=== PATIENT | male | born 1940 | race Caucasian/White ===

== ENCOUNTER 2016-09-24 12:16 | Inpatient (IN) | payer MEDICARE ==
--- NOTE | 2016-09-24 12:55 | C.PDOC ---
History Of Present Illness 76 y/o M c CKD not yet on HD p/w hyponatremia. Patient went to PMD's office to have serial creatinine drawn, found to have hyponatremia and instructed to come to ER for further evaluation. Patient and deny altered mental status, lethargy, or seizure. Patient has had some shortness of breath for weeks, denies fever or cough. Time Seen by Provider: 09/24/16 12:44 Chief Complaint (Nursing): Abnormal Labs Past Medical History Reviewed: Historical Data, Nursing Documentation, Vital Signs Vital Signs: Last Vital Signs Temp 97.6 F 09/24/16 13:15 Pulse 61 09/24/16 13:15 Resp 19 09/24/16 13:15 BP 159/69 H 09/24/16 13:15 Pulse Ox 95 09/24/16 13:55 - Medical History PMH: HTN, End Stage Renal Disease Surgical History: No Surg Hx Family History: States: Unknown Family Hx - Social History Hx Tobacco Use: No Hx Alcohol Use: No Hx Substance Use: No Review Of Systems Except As Marked, All Systems Reviewed And Found Negative. Constitutional: Negative for: Fever Cardiovascular: Negative for: Chest Pain Physical Exam - Physical Exam Additional Physical Exam Comments: Constitutional: No acute distress. Head: Normocephalic. Atraumatic. Eyes: PERRL. ENT: Moist mucous membranes. Neck: Supple. Cardiovascular: Regular rate. Radial pulse 2+ bilaterally. Chest: No tenderness. Respiratory: Intermittent wheeze. GI: Soft. Nontender. Nondistended. Back: No CVA tenderness. Musculoskeletal: +welling of lower extremities. Skin: No rash. Neurologic: Alert, no focal deficit. ED Course And Treatment - Laboratory Results Result Diagrams: 09/24/16 13:26 09/24/16 13:26 O2 Sat by Pulse Oximetry: 95 (ra) Pulse Ox Interpretation: Normal Medical Decision Making Medical Decision Making: Repeat sodium 112. EKG NSR 66 bpm, no ST/T wave changes. CXR midline sternotomy wires. Mild congestion, will treat with Lasix, which patient takes BID. Accepted for admission by Dr. Garcia. Disposition Discussed With Dr.: Inessa Garcia Doctor Will See Patient In The: Hospital - Disposition Disposition: HOSPITALIZED Disposition Time: 14:19 Condition: GUARDED - Clinical Impression Clinical Impression: Hyponatremia
[2016-09-24 13:34] LABS: BASO # 0.1 K/uL (0.0-0.2); BASO % 0.8 % (0.0-2.0); EOS # 0.1 K/uL (0.0-0.7); EOS % 0.7 % (0.0-4.0); HEMATOCRIT 24.4 % (35.0-51.0); LYMPH # 0.5 K/uL (1.0-4.3); LYMPH % 4.1 % (20.0-40.0); MEAN CELL VOLUME 80.6 fL (80.0-94.0); MEAN CORPUSCULAR HGB CONC 33.5 g/dL (33.0-37.0); MONO # 1.1 K/uL (0.0-0.8); MONO % 8.8 % (0.0-10.0); PLATELET COUNT 310 K/uL (130-400); RED CELL DISTRIBUTION WIDTH 13.2 % (11.5-14.5); WHITE BLOOD COUNT 12.7 K/uL (4.8-10.8)
[2016-09-24 13:42] LABS: ALB/GLOB RATIO 1.1 (1.0-2.1); BILIRUBIN,TOTAL 0.3 mg/dL (0.2-1.3); TOTAL PROTEIN 5.8 g/dL (6.3-8.3)
[2016-09-24 13:43] LABS: CALCIUM 7.4 mg/dl (8.6-10.4)
[2016-09-24 14:04] LABS: EOSINOPHIL 2 % (0-4); NEUTROPHIL 88 % (50-75); TOTAL CELLS COUNTED 100
--- NOTE | 2016-09-24 14:43 | RAD ---
HISTORY: dyspnea COMPARISON: None available TECHNIQUE: Chest, one view. FINDINGS: LUNGS: Central vascular congestion. Linear atelectasis or scarring in the right midlung zone. Please note that chest x-ray has limited sensitivity for the detection of pulmonary masses. PLEURA: Suspect small bilateral pleural effusions. No definite pneumothorax . CARDIOVASCULAR: Median sternotomy wires. Cardiomegaly. OSSEOUS STRUCTURES: Degenerative changes. VISUALIZED UPPER ABDOMEN: Unremarkable. OTHER FINDINGS: None. IMPRESSION: Central vascular congestion. Linear atelectasis or scarring in the right midlung zone. Suspect small bilateral pleural effusions. Cardiomegaly.
--- NOTE | 2016-09-24 20:19 | CP.PCM.CON ---
History of Present Illness - History of Present Illness History of Present Illness: 76 M w/ PMHx of HTN, DM, ESRD, presents to the ED after PMD advised patient to head to ED after being notified of patient's critical lab values. Patient found to have hyponatremia. not yet on HD p/w hyponatremia. At time of examination patient was AAOx3. Patient reports some shortness of breath, states he has been experiencing this for about 4 days. Patient also complains of stomach distension and constipation. Patient states he produces some urine about every 2 -3 days. Patient denies chest pain, fever/chills. PMHx: as stated above PSurgHx: Open heart surgery(2007), umbilical hernia repair, appendectomy Soc Hx: denies smoking, EtOH use, illicit drug use. Review of Systems - Review of Systems Review of Systems: 12 pt ROS carried out, unremarkable; except as stated in HPI Past Patient History - Past Medical History & Family History Past Medical History?: Yes - Past Social History Smoking Status: Never Smoked - CARDIAC Hx Cardiac Disorders: Yes Hx Heart Attack: Yes Hx Hypercholesterolemia: Yes Hx Hypertension: Yes - PULMONARY Hx Respiratory Disorders: Yes Other/Comment: SOB ON EXERTION - NEUROLOGICAL Hx Neurological Disorder: No - HEENT Hx HEENT Problems: Yes Other/Comment: WEAR GLASSES,? RETINAL PROBLEM - RENAL Hx Chronic Kidney Disease: Yes - ENDOCRINE/METABOLIC Hx Endocrine Disorders: Yes Hx Diabetes Mellitus Type 2: Yes - HEMATOLOGICAL/ONCOLOGICAL Hx Blood Disorders: Yes Hx Anemia: Yes - INTEGUMENTARY Hx Dermatological Problems: No - MUSCULOSKELETAL/RHEUMATOLOGICAL Hx Musculoskeletal Disorders: No Hx Falls: No - GASTROINTESTINAL Hx Gastrointestinal Disorders: Yes Hx Constipation: Yes - GENITOURINARY/GYNECOLOGICAL Hx Genitourinary Disorders: Yes Hx Prostate Problems: Yes (HX OF PROSTATE TUMOR) - PSYCHIATRIC Hx Psychophysiologic Disorder: No Hx Substance Use: No - SURGICAL HISTORY Hx Surgeries: Yes Hx Herniorrhaphy: Yes (LEFT INGUINAL) Hx Open Heart Surgery: Yes Other/Comment: 2 HEART STENTS,HEMORRHOIDECTOMY - ANESTHESIA Hx Anesthesia: Yes Hx Anesthesia Reactions: No Meds Allergies/Adverse Reactions: Allergies Allergy/AdvReac Type Severity Reaction Status Date / Time No Known Allergies Allergy Verified 09/24/16 12:51 - Medications Medications: Current Medications Acetaminophen (Tylenol 325mg Tab) 650 mg PO Q6 PRN PRN Reason: Fever >100.4 F Aspirin (Aspirin Chewable) 81 mg PO DAILY [facility] Carvedilol (Coreg) 25 mg PO BID [facility] Clonidine HCl (Catapres) 0.3 mg PO TID [facility] Clopidogrel Bisulfate (Plavix) 75 mg PO DAILY [facility] Docusate Sodium (Colace) 100 mg PO BID [facility] Enoxaparin Sodium (Lovenox) 40 mg SC DAILY [facility] Folic Acid (Folic Acid) 1 mg PO DAILY [facility] Glimepiride (Amaryl) 4 mg PO DAILY [facility] Home Med (Amlodipine/Valsartan [Exforge 5-320 Mg Tablet]) 1 tab PO DAILY [facility] Home Med (Lactulose [Generlac]) 10 gm PO DAILY [facility] Insulin Human Regular (Novolin R) unit SC ACHS ON [facility] OF [facility] PRN Reason: Protocol Isosorbide Mononitrate (Imdur) 120 mg PO DAILY [facility] Ondansetron HCl (Zofran Inj) 4 mg IVP Q6 PRN PRN Reason: Nausea/Vomiting Oxycodone/Acetaminophen (Percocet 5/325 Mg Tab) 1 tab PO Q4 PRN PRN Reason: Pain, moderate (4-7) Stop: 09/27/16 19:42 Rosuvastatin Calcium (Crestor) 10 mg PO HS [facility] Sevelamer Carbonate (Renvela) 800 mg PO BID [facility] Sitagliptin Phosphate (Januvia) 100 mg PO DAILY [facility] Sucralfate (Carafate Tab) 1 gm PO BID [facility] Tolvaptan (Samsca) 15 mg PO DAILY [facility] Stop: 09/26/16 19:46 Physical Exam - Constitutional Appears: No Acute Distress - Head Exam Head Exam: NORMOCEPHALIC - Eye Exam Eye Exam: Normal appearance - ENT Exam ENT Exam: Mucous Membranes Moist - Respiratory Exam Respiratory Exam: Rales. absent: Accessory Muscle Use - Cardiovascular Exam Cardiovascular Exam: +S1, +S2. absent: Tachycardia - GI/Abdominal Exam GI & Abdominal Exam: Distended, Soft. absent: Guarding, Hernia, Tenderness - Extremities Exam Extremities exam: Positive for: pedal edema. Negative for: calf tenderness - Neurological Exam Neurological exam: Alert, Oriented x3 - Psychiatric Exam Psychiatric exam: Normal Mood - Skin Skin Exam: Intact, Warm Results - Vital Signs Recent Vital Signs: Last Vital Signs Temp 97.5 F L 09/24/16 16:18 Pulse 71 09/24/16 18:15 Resp 20 09/24/16 18:15 BP 175/88 H 09/24/16 16:18 Pulse Ox 96 09/24/16 18:15 - Labs Result Diagrams: 09/24/16 13:26 09/24/16 13:26 Assessment & Plan - Assessment and Plan (Free Text) Assessment: 76M w/ HTN, DM, ESRD, & hyponatremia w/ elevated BUN/Cr levels -Patient scheduled for insertion of hemodialysis catheter in AM -Keep pt NPO past midnight -EKG, CXR -Hold anti-coagulation -Medical management as per primary team -Monitor mental status -Monitor vitals -F/u AM labs -D/w Dr. Prieto
[2016-09-24] MEDS: (Novolin R) Insulin Human Regular 100 units/ml vial SC SCH (22:00)
--- NOTE | 2016-09-24 23:54 | CP.PCM.HP ---
History of Present Illness - History of Present Illness History of Present Illness: 76 year old with DM, HTN, stage 4 CKD latetly with progressive SOB, admitted with severe hyponatremia, on samsca, for start of HD, hx of CAD post CABG, BPH Present on Admission - Present on Admission Any Indicators Present on Admission: No Review of Systems - Review of Systems Systems not reviewed;Unavailable: Acuity of Condition - Constitutional Constitutional: Anorexia, Weakness - EENT Eyes: absent: Discharge Ears: absent: Ear Discharge, Dizziness Nose/Mouth/Throat: absent: Epistaxis - Cardiovascular Cardiovascular: Dyspnea. absent: Acrocyanosis, Diaphoresis, Palpitations, Syncope - Respiratory Respiratory: Cough, Dyspnea. absent: Hemoptysis - Gastrointestinal Gastrointestinal: Constipation. absent: Abdominal Pain, Diarrhea - Genitourinary Genitourinary: absent: Change in Urinary Stream Past Patient History - Past Medical History & Family History Past Medical History?: Yes - Past Social History Smoking Status: Never Smoked - CARDIAC Hx Cardiac Disorders: Yes Hx Heart Attack: Yes Hx Hypercholesterolemia: Yes Hx Hypertension: Yes - PULMONARY Hx Respiratory Disorders: Yes Other/Comment: SOB ON EXERTION - NEUROLOGICAL Hx Neurological Disorder: No - HEENT Hx HEENT Problems: Yes Other/Comment: WEAR GLASSES,? RETINAL PROBLEM - RENAL Hx Chronic Kidney Disease: Yes - ENDOCRINE/METABOLIC Hx Endocrine Disorders: Yes Hx Diabetes Mellitus Type 2: Yes - HEMATOLOGICAL/ONCOLOGICAL Hx Blood Disorders: Yes Hx Anemia: Yes - INTEGUMENTARY Hx Dermatological Problems: No - MUSCULOSKELETAL/RHEUMATOLOGICAL Hx Musculoskeletal Disorders: No Hx Falls: No - GASTROINTESTINAL Hx Gastrointestinal Disorders: Yes Hx Constipation: Yes - GENITOURINARY/GYNECOLOGICAL Hx Genitourinary Disorders: Yes Hx Prostate Problems: Yes (HX OF PROSTATE TUMOR) - PSYCHIATRIC Hx Psychophysiologic Disorder: No Hx Substance Use: No - SURGICAL HISTORY Hx Surgeries: Yes Hx Herniorrhaphy: Yes (LEFT INGUINAL) Hx Open Heart Surgery: Yes Other/Comment: 2 HEART STENTS,HEMORRHOIDECTOMY - ANESTHESIA Hx Anesthesia: Yes Hx Anesthesia Reactions: No Meds Allergies/Adverse Reactions: Allergies Allergy/AdvReac Type Severity Reaction Status Date / Time No Known Allergies Allergy Verified 09/24/16 12:51 Physical Exam - Constitutional Appears: Non-toxic - Head Exam Head Exam: ATRAUMATIC - Eye Exam Eye Exam: EOMI - ENT Exam ENT Exam: Mucous Membranes Moist - Neck Exam Neck exam: Negative for: Lymphadenopathy, Thyromegaly - Respiratory Exam Respiratory Exam: Clear to Auscultation Bilateral. absent: Rales - Cardiovascular Exam Cardiovascular Exam: REGULAR RHYTHM, Systolic Murmur - GI/Abdominal Exam GI & Abdominal Exam: Normal Bowel Sounds. absent: Organomegaly - Rectal Exam Rectal Exam: absent: Deferred - Extremities Exam Extremities exam: Positive for: normal capillary refill. Negative for: calf tenderness - Neurological Exam Neurological exam: Alert, Oriented x3 - Psychiatric Exam Psychiatric exam: Normal Mood - Skin Skin Exam: Dry Results - Vital Signs Recent Vital Signs: Last Vital Signs Temp 97.5 F L 09/24/16 16:18 Pulse 71 09/24/16 18:15 Resp 20 09/24/16 18:15 BP 150/76 09/24/16 21:27 Pulse Ox 96 09/24/16 18:15 - Labs Result Diagrams: 09/24/16 13:26 09/25/16 14:41 Labs: Laboratory Results - last 24 hr 09/24/16 21:56 POC Glucose (mg/dL) 284 H Assessment & Plan (1) Hyponatremia Status: Acute Comment: 112 on samsca (2) CKD (chronic kidney disease) stage 5, GFR less than 15 ml/min Status: Chronic (3) Diabetes 1.5, managed as type 2 Status: Chronic (4) Hypertension Status: Chronic (5) S/P CABG (coronary artery bypass graft) Status: Chronic Comment: observe Decision To Admit - Pt Status Changed To: Hospital Disposition Of: Inpatient - Admit Certification Admit to Inpatient:: After my assessment, the patient will require hospitalization for at least two midnights. This is because of the severity of symptoms shown, intensity of services needed, and/or the medical risk in this patient being treated as an outpatient. - InPatient: Physician Admission Certification:: yes - . Bed Request Type: Telemetry
[2016-09-25] MEDS: Oxycodone/Acetaminophen 5/325 mg Tab PO PRN ×2 (00:03→05:56)
[2016-09-25 07:30] LABS: INR 1.3
[2016-09-25] MEDS: (Novolin R) Insulin Human Regular 100 units/ml vial SC SCH ×4 (07:51→21:18)
[2016-09-25 08:04] LABS: POTASSIUM 3.8 mmol/L (3.6-5.2)
[2016-09-25 08:08] LABS: CALCIUM 7.7 mg/dl (8.6-10.4)
[2016-09-25] MEDS ORDERED: Enoxaparin 40 mg Syringe SC SCH (10:00)
[2016-09-25] MEDS ORDERED: Lidocaine 1% Inj (20ml) ONE (11:42)
[2016-09-25] MEDS ORDERED: HEPARIN-NS 5,000 UNITS/500 ML 500 ML IV ONE (11:42)
[2016-09-25] MEDS ORDERED: Sodium Chloride 0.9% 500 ML IV ONE (11:55)
[2016-09-25] MEDS ORDERED: Propofol 10 mg/ml Inj (20 ML) ONE (11:59)
[2016-09-25] MEDS ORDERED: Midazolam 2 MG/2 ML VIAL ONE (11:59)
[2016-09-25] MEDS: ceFAZolin 1 gm FROZEN Premix 50 ML IVPB ONE ×2 (12:10→12:21)
--- NOTE | 2016-09-25 12:43 | PCM.SURG1 ---
Surgeon's Initial Post Op Note - Surgeon's Notes Surgeon: Dr. Prieto Back Hanger: Dr. Elliott Type of Anesthesia: IV Sedation, Local Pre-Operative Diagnosis: hyponatremia, CHF Operative Findings: dark venous blood, adequately placed intact permacath Post-Operative Diagnosis: same Operation Performed: right IJ vein permacath insertion w/ ultrasound guidance and flouroscopy Specimen/Specimens Removed: none Estimated Blood Loss: EBL {In ML}: 15 Blood Products Given: N/A Drains Used: No Drains Post-Op Condition: Good Date of Surgery/Procedure: 09/25/16 Time of Surgery/Procedure: 12:43
[2016-09-25] MEDS ORDERED: Epoetin Alfa 3000 UNIT/ML Inj IV ONE (12:44)
--- NOTE | 2016-09-25 13:05 | OP ---
PROCEDURE DATE: 09/25/2016 PREOPERATIVE DIAGNOSIS: Renal failure. POSTOPERATIVE DIAGNOSIS: Renal failure. PROCEDURE CARRIED OUT: Placement of PermCath right jugular vein with C-arm fluoroscopy, ultrasound-g uided puncture, and micropuncture technique. SURGEON: Dr. Prieto PLEATING SUPERVISOR: Dr. Elliott ANESTHESIOLOGIST: ____ ANESTHESIA: Local with sedation. INDICATIONS: The patient is an elderly man with shortness of breath, profound electrolyte abnormalit ies, requires placement of a catheter on an urgent basis for dialysis. OPERATIVE FINDINGS: Catheter was inserted uneventfully via the right jugular vein. PROCEDURE: The patient was given local anesthesia. Using ultrasound guidance and a micropuncture te chnique, the right jugular vein was punctured. Under fluoroscopic control, the guidewire was advance d centrally. A sheath dilator was passed over this and the catheter was positioned in the appropriat e location. It was flushed with heparinized saline with good return. There were no operative compli cations. Blood loss was minimal. OPERATION CARRIED OUT: Placement of PermCath right jugular vein with C-arm fluoroscopy, ultrasound-g uided puncture and micropuncture technique. Chase Prieto Jr., MD cc: 56 TT: 09/25/2016 13:04:59 sn
--- NOTE | 2016-09-25 13:19 | CP.PCM.CON ---
History of Present Illness - History of Present Illness History of Present Illness: 76 y/o male with Stage 5 kidney disease sec to diabetic nephropathy ( 7 gm proteinuria ) HTN, CAD/CABG,DM 11, BPH is admitted for CHFvolume overload & severe hyponatremia. Pt is f/b Dr Chance in the office. Has been advised to initiate dialysis but has been delaying it & not keeping office appts. regularly. Was seen in the office on Mon & blood work showed Sod level of 114 & Cr. of 6.3. Pt was called to go to ER Pt has been attending classes for PD & was told by PD team to start dialysis but wanted to wait Past Patient History - Past Medical History & Family History Past Medical History?: Yes - Past Social History Smoking Status: Never Smoked - CARDIAC Hx Cardiac Disorders: Yes Hx Heart Attack: Yes Hx Hypercholesterolemia: Yes Hx Hypertension: Yes - PULMONARY Hx Respiratory Disorders: Yes Other/Comment: SOB ON EXERTION - NEUROLOGICAL Hx Neurological Disorder: No - HEENT Hx HEENT Problems: Yes Other/Comment: WEAR GLASSES,? RETINAL PROBLEM - RENAL Hx Chronic Kidney Disease: Yes - ENDOCRINE/METABOLIC Hx Endocrine Disorders: Yes Hx Diabetes Mellitus Type 2: Yes - HEMATOLOGICAL/ONCOLOGICAL Hx Blood Disorders: Yes Hx Anemia: Yes - INTEGUMENTARY Hx Dermatological Problems: No - MUSCULOSKELETAL/RHEUMATOLOGICAL Hx Musculoskeletal Disorders: No Hx Falls: No - GASTROINTESTINAL Hx Gastrointestinal Disorders: Yes Hx Constipation: Yes - GENITOURINARY/GYNECOLOGICAL Hx Genitourinary Disorders: Yes Hx Prostate Problems: Yes (HX OF PROSTATE TUMOR) - PSYCHIATRIC Hx Psychophysiologic Disorder: No Hx Substance Use: No - SURGICAL HISTORY Hx Surgeries: Yes Hx Herniorrhaphy: Yes (LEFT INGUINAL) Hx Open Heart Surgery: Yes Other/Comment: 2 HEART STENTS,HEMORRHOIDECTOMY - ANESTHESIA Hx Anesthesia: Yes Hx Anesthesia Reactions: No Meds Allergies/Adverse Reactions: Allergies Allergy/AdvReac Type Severity Reaction Status Date / Time No Known Allergies Allergy Verified 09/24/16 12:51 - Medications Medications: Current Medications Acetaminophen (Tylenol 325mg Tab) 650 mg PO Q6 PRN PRN Reason: Fever >100.4 F Amlodipine Besylate (Norvasc) 5 mg PO DAILY [facility] Last Admin: 09/25/16 10:27 Dose: 5 mg Aspirin (Aspirin Chewable) 81 mg PO DAILY [facility] Carvedilol (Coreg) 25 mg PO BID [facility] Last Admin: 09/25/16 10:16 Dose: Not Given Clonidine HCl (Catapres) 0.3 mg PO TID [facility] Last Admin: 09/25/16 10:27 Dose: 0.3 mg Clopidogrel Bisulfate (Plavix) 75 mg PO DAILY [facility] Last Admin: 09/25/16 10:15 Dose: Not Given Docusate Sodium (Colace) 100 mg PO BID [facility] Last Admin: 09/25/16 10:15 Dose: Not Given Enoxaparin Sodium (Lovenox) 40 mg SC DAILY [facility] Epoetin Niels (Procrit) 6,000 unit IV ONCE ONE Stop: 09/25/16 12:45 Folic Acid (Folic Acid) 1 mg PO DAILY [facility] Glimepiride (Amaryl) 4 mg PO DAILY [facility] Last Admin: 09/25/16 10:14 Dose: Not Given Insulin Human Regular (Novolin R) 0 unit SC [facility] PRN Reason: Protocol Last Admin: 09/25/16 11:47 Dose: Not Given Isosorbide Mononitrate (Imdur) 120 mg PO DAILY [facility] Last Admin: 09/25/16 10:27 Dose: 120 mg Lactulose (Enulose) 10 gm PO DAILY [facility] Ondansetron HCl (Zofran Inj) 4 mg IVP Q6 PRN PRN Reason: Nausea/Vomiting Last Admin: 09/25/16 07:36 Dose: 4 mg Oxycodone/Acetaminophen (Percocet 5/325 Mg Tab) 1 tab PO Q4 PRN PRN Reason: Pain, moderate (4-7) Stop: 09/27/16 19:42 Last Admin: 09/25/16 05:56 Dose: 1 tab Rosuvastatin Calcium (Crestor) 10 mg PO [facility] Last Admin: 09/24/16 21:27 Dose: Not Given Sevelamer Carbonate (Renvela) 800 mg PO BID [facility] Last Admin: 09/25/16 10:15 Dose: Not Given Sitagliptin Phosphate (Januvia) 100 mg PO DAILY [facility] Last Admin: 09/25/16 10:15 Dose: Not Given Sucralfate (Carafate Tab) 1 gm PO BID [facility] Last Admin: 09/25/16 10:15 Dose: Not Given Tolvaptan (Samsca) 15 mg PO DAILY [facility] Stop: 09/26/16 11:16 Physical Exam - Constitutional Additional comments: Mildly dyspneic - Head Exam Head Exam: ATRAUMATIC, NORMOCEPHALIC - Eye Exam Additional comments: Conjunctivae pale, Sclera anicteric - ENT Exam ENT Exam: Mucous Membranes Moist - Neck Exam Additional comments: JVD + @ 45 degrees - Respiratory Exam Additional comments: Bibasilar crackles & few expiratory wheezes - Cardiovascular Exam Cardiovascular Exam: REGULAR RHYTHM - GI/Abdominal Exam GI & Abdominal Exam: Firm Additional comments: No tenderness - Rectal Exam Rectal Exam: Deferred - Extremities Exam Additional comments: 2-3+ B/L pedal edema - Neurological Exam Additional comments: Alert & verbally communicative Moves all extrem equally B/L Results - Vital Signs Recent Vital Signs: Last Vital Signs Temp 97.8 F 09/25/16 08:10 Pulse 92 H 09/25/16 08:10 Resp 20 09/25/16 08:10 BP 126/83 09/25/16 08:10 Pulse Ox 95 09/25/16 08:10 - Labs Result Diagrams: 09/24/16 13:26 09/25/16 07:11 Labs: Laboratory Results - last 24 hr 09/24/16 09/25/16 09/25/16 21:56 06:37 07:11 PT 14.9 H INR 1.3 APTT 32 Sodium 112 L* Potassium 3.8 Chloride 70 L Carbon Dioxide 26 Anion Gap 20 BUN 64 H Creatinine 6.1 H Est GFR ( Amer) 11 Est GFR (Non-Af Amer) 9 POC Glucose (mg/dL) 284 H 129 H Random Glucose 113 H Calcium 7.7 L 09/25/16 09/25/16 11:06 12:58 PT INR APTT Sodium Potassium Chloride Carbon Dioxide Anion Gap BUN Creatinine Est GFR ( Amer) Est GFR (Non-Af Amer) POC Glucose (mg/dL) 204 H 167 H Random Glucose Calcium Assessment & Plan - Assessment and Plan (Free Text) Assessment: ESRD Severe hyponatremia most likely dilutional Volume overload related to nephrotic syndrome /CHF CAD DM 11 Plan: Pt & his agreed to initiate hemodialysis. Benefits & complications of dialysis explained in detail. Dialysis catheter is just placed. To start dialysis [place] Iron profile .Epogen ordered Monitor closely
--- NOTE | 2016-09-25 13:25 | RAD ---
HISTORY: s/p right IJ permacath insertion COMPARISON: 09/24/2016 FINDINGS: The right PermCath terminates at the cavoatrial junction LUNGS: Lung markings are accentuated and there is fluid in the horizontal fissure. PLEURA: There are bilateral pleural effusions, larger on the left, worse since the prior examination. No pneumothorax apparent. CARDIOVASCULAR: There is persistent moderate cardiomegaly and pleural effusions, larger on the left. OSSEOUS STRUCTURES: No significant abnormalities. VISUALIZED UPPER ABDOMEN: Normal. OTHER FINDINGS: None. IMPRESSION: Right PermCath terminates at the cavoatrial junction. No pneumothorax. Congestive heart failure, worse since the prior examination.
--- NOTE | 2016-09-25 14:45 | CARD ---
APPROVED REPORT EKG Measurement Heart [id number] <Conclusion> Normal sinus rhythm Moderate voltage criteria for LVH, may be normal variant Nonspecific T wave abnormality Prolonged QT Abnormal ECG
[2016-09-25 14:56] LABS: POTASSIUM 3.7 mmol/L (3.6-5.2)
[2016-09-25 15:00] LABS: CALCIUM 7.5 mg/dl (8.6-10.4); IRON 32 ug/dL (49-181)
[2016-09-25 15:03] LABS: PHOSPHOROUS 7.6 mg/dL (2.5-4.5)
[2016-09-25] MEDS ORDERED: Epoetin Alfa Dialysis 3000 UNIT/ML Inj IV ONE (15:30)
--- NOTE | 2016-09-25 16:21 | CP.PCM.PN ---
Subjective - Date & Time of Evaluation Date of Evaluation: 09/25/16 Time of Evaluation: 03:45 - Subjective Subjective: Currently on dialysis Very comfortable & alert. States he feels much better Objective - Vital Signs/Intake and Output Vital Signs (last 24 hours): Temp Pulse Resp BP Pulse Ox 97.4 F L 60 16 111/64 99 09/25/16 14:05 09/25/16 13:45 09/25/16 13:45 09/25/16 14:05 09/25/16 14:05 Intake and Output: 09/25/16 09/25/16 06:59 18:59 Intake Total 320 Output Total 700 Balance -380 - Medications Medications: Current Medications Acetaminophen (Tylenol 325mg Tab) 650 mg PO Q6 PRN PRN Reason: Fever >100.4 F Amlodipine Besylate (Norvasc) 5 mg PO DAILY [facility] Last Admin: 09/25/16 10:27 Dose: 5 mg Aspirin (Aspirin Chewable) 81 mg PO DAILY [facility] Last Admin: 09/25/16 10:15 Dose: Not Given Carvedilol (Coreg) 25 mg PO BID [facility] Last Admin: 09/25/16 10:16 Dose: Not Given Clonidine HCl (Catapres) 0.3 mg PO TID [facility] Last Admin: 09/25/16 14:53 Dose: Not Given Clopidogrel Bisulfate (Plavix) 75 mg PO DAILY [facility] Last Admin: 09/25/16 10:15 Dose: Not Given Docusate Sodium (Colace) 100 mg PO BID [facility] Last Admin: 09/25/16 10:15 Dose: Not Given Enoxaparin Sodium (Lovenox) 40 mg SC DAILY [facility] Folic Acid (Folic Acid) 1 mg PO DAILY [facility] Last Admin: 09/25/16 10:15 Dose: Not Given Glimepiride (Amaryl) 4 mg PO DAILY [facility] Last Admin: 09/25/16 10:14 Dose: Not Given Heparin Sodium (Porcine) (Heparin) 3,700 units IVP TTS [facility] Stop: 10/08/16 10:01 Insulin Human Regular (Novolin R) 0 unit SC [facility] PRN Reason: Protocol Last Admin: 09/25/16 11:47 Dose: Not Given Isosorbide Mononitrate (Imdur) 120 mg PO DAILY [facility] Last Admin: 09/25/16 10:27 Dose: 120 mg Lactulose (Enulose) 10 gm PO DAILY [facility] Last Admin: 09/25/16 10:15 Dose: Not Given Ondansetron HCl (Zofran Inj) 4 mg IVP Q6 PRN PRN Reason: Nausea/Vomiting Last Admin: 09/25/16 07:36 Dose: 4 mg Oxycodone/Acetaminophen (Percocet 5/325 Mg Tab) 1 tab PO Q4 PRN PRN Reason: Pain, moderate (4-7) Stop: 09/27/16 19:42 Last Admin: 09/25/16 05:56 Dose: 1 tab Rosuvastatin Calcium (Crestor) 10 mg PO HS [facility] Last Admin: 09/24/16 21:27 Dose: Not Given Sevelamer Carbonate (Renvela) 800 mg PO BID [facility] Last Admin: 09/25/16 10:15 Dose: Not Given Sitagliptin Phosphate (Januvia) 100 mg PO DAILY [facility] Last Admin: 09/25/16 10:15 Dose: Not Given Sucralfate (Carafate Tab) 1 gm PO BID [facility] Last Admin: 09/25/16 10:15 Dose: Not Given Tolvaptan (Samsca) 15 mg PO DAILY [facility] Stop: 09/26/16 11:16 - Labs Labs: 09/25/16 14:41 PT 14.9 SECONDS (9.7-12.2) H 09/25/16 07:11 INR 1.3 09/25/16 07:11 APTT 32 SECONDS (21-34) 09/25/16 07:11 - Respiratory Exam Additional comments: Lungs : bibasilar crackles - Cardiovascular Exam Cardiovascular Exam: REGULAR RHYTHM - Extremities Exam Additional comments: 2-3 + b/l edema Assessment and Plan - Assessment and Plan (Free Text) Assessment: ESRD receiving first dialysis Hyponatremia Fluid overload Plan: BP is stable Post dialysis BMP ordered
--- NOTE | 2016-09-25 17:58 | CP.PCM.PN ---
Subjective - Date & Time of Evaluation Date of Evaluation: 09/25/16 Time of Evaluation: 13:00 - Subjective Subjective: seen on HD conduit in place doing well Objective - Vital Signs/Intake and Output Vital Signs (last 24 hours): Temp Pulse Resp BP Pulse Ox 98.3 F 75 20 149/75 96 09/25/16 17:52 09/25/16 17:52 09/25/16 17:52 09/25/16 17:52 09/25/16 17:52 Intake and Output: 09/25/16 09/25/16 06:59 18:59 Intake Total 320 Output Total 700 Balance -380 - Medications Medications: Current Medications Acetaminophen (Tylenol 325mg Tab) 650 mg PO Q6 PRN PRN Reason: Fever >100.4 F Amlodipine Besylate (Norvasc) 5 mg PO DAILY [facility] Last Admin: 09/25/16 10:27 Dose: 5 mg Aspirin (Aspirin Chewable) 81 mg PO DAILY [facility] Last Admin: 09/25/16 10:15 Dose: Not Given Carvedilol (Coreg) 25 mg PO BID [facility] Last Admin: 09/25/16 10:16 Dose: Not Given Clonidine HCl (Catapres) 0.3 mg PO TID [facility] Last Admin: 09/25/16 14:53 Dose: Not Given Clopidogrel Bisulfate (Plavix) 75 mg PO DAILY [facility] Last Admin: 09/25/16 10:15 Dose: Not Given Docusate Sodium (Colace) 100 mg PO BID [facility] Last Admin: 09/25/16 10:15 Dose: Not Given Enoxaparin Sodium (Lovenox) 40 mg SC DAILY [facility] Folic Acid (Folic Acid) 1 mg PO DAILY [facility] Last Admin: 09/25/16 10:15 Dose: Not Given Glimepiride (Amaryl) 4 mg PO DAILY [facility] Last Admin: 09/25/16 10:14 Dose: Not Given Heparin Sodium (Porcine) (Heparin) 3,700 units IVP TTS [facility] Stop: 10/08/16 10:01 Insulin Human Regular (Novolin R) 0 unit SC ACHS [facility] PRN Reason: Protocol Last Admin: 09/25/16 17:53 Dose: Not Given Isosorbide Mononitrate (Imdur) 120 mg PO DAILY [facility] Last Admin: 09/25/16 10:27 Dose: 120 mg Lactulose (Enulose) 10 gm PO DAILY [facility] Last Admin: 09/25/16 10:15 Dose: Not Given Ondansetron HCl (Zofran Inj) 4 mg IVP Q6 PRN PRN Reason: Nausea/Vomiting Last Admin: 09/25/16 07:36 Dose: 4 mg Oxycodone/Acetaminophen (Percocet 5/325 Mg Tab) 1 tab PO Q4 PRN PRN Reason: Pain, moderate (4-7) Stop: 09/27/16 19:42 Last Admin: 09/25/16 05:56 Dose: 1 tab Rosuvastatin Calcium (Crestor) 10 mg PO HS [facility] Last Admin: 09/24/16 21:27 Dose: Not Given Sevelamer Carbonate (Renvela) 800 mg PO BID [facility] Last Admin: 09/25/16 10:15 Dose: Not Given Sitagliptin Phosphate (Januvia) 100 mg PO DAILY [facility] Last Admin: 09/25/16 10:15 Dose: Not Given Sucralfate (Carafate Tab) 1 gm PO BID [facility] Last Admin: 09/25/16 10:15 Dose: Not Given Tolvaptan (Samsca) 15 mg PO DAILY [facility] Stop: 09/26/16 11:16 - Labs Labs: 09/25/16 14:41 PT 14.9 SECONDS (9.7-12.2) H 09/25/16 07:11 INR 1.3 09/25/16 07:11 APTT 32 SECONDS (21-34) 09/25/16 07:11 - Constitutional Appears: Non-toxic - Head Exam Head Exam: ATRAUMATIC - Eye Exam Eye Exam: EOMI - ENT Exam ENT Exam: Mucous Membranes Moist - Neck Exam Neck Exam: absent: Lymphadenopathy, Thyromegaly - Respiratory Exam Respiratory Exam: Clear to Ausculation Bilateral. absent: Rales - Cardiovascular Exam Cardiovascular Exam: REGULAR RHYTHM, Murmur - GI/Abdominal Exam GI & Abdominal Exam: Normal Bowel Sounds. absent: Organomegaly - Rectal Exam Rectal Exam: Deferred - Extremities Exam Extremities Exam: Normal Capillary Refill. absent: Calf Tenderness - Neurological Exam Neurological Exam: Alert, Oriented x3 - Psychiatric Exam Psychiatric exam: Normal Mood - Skin Skin Exam: Dry Assessment and Plan (1) Hyponatremia Status: Acute (2) CKD (chronic kidney disease) stage 5, GFR less than 15 ml/min Status: Chronic (3) Diabetes 1.5, managed as type 2 Status: Chronic (4) Hypertension Status: Chronic (5) S/P CABG (coronary artery bypass graft) Status: Chronic
[2016-09-25] MEDS: Tolvaptan 15 MG TAB PO SCH (18:42)
[2016-09-26 06:22] LABS: BASO % 0.3 % (0.0-2.0); EOS % 0.4 % (0.0-4.0); LYMPH # 0.5 K/uL (1.0-4.3); LYMPH % 4.6 % (20.0-40.0); MEAN CELL VOLUME 80.4 fL (80.0-94.0); MEAN CORPUSCULAR HEMOGLOBIN 27.5 pg (27.0-31.0); MEAN CORPUSCULAR HGB CONC 34.2 g/dL (33.0-37.0); MEAN PLATELET VOLUME 6.7 fL (7.2-11.7); MONO # 1.2 K/uL (0.0-0.8); MONO % 11.5 % (0.0-10.0); PLATELET COUNT 336 K/uL (130-400); RED CELL DISTRIBUTION WIDTH 12.9 % (11.5-14.5); WHITE BLOOD COUNT 10.2 K/uL (4.8-10.8)
[2016-09-26 07:38] LABS: POTASSIUM 3.9 mmol/L (3.6-5.2)
[2016-09-26 07:40] LABS: ALB/GLOB RATIO 1.1 (1.0-2.1); BILIRUBIN,TOTAL 0.1 mg/dL (0.2-1.3); CALCIUM 7.3 mg/dl (8.6-10.4); TOTAL PROTEIN 5.2 g/dL (6.3-8.3)
[2016-09-26] MEDS: (Novolin R) Insulin Human Regular 100 units/ml vial SC SCH ×4 (08:16→21:34)
[2016-09-26 08:28] LABS: NEUTROPHIL 83 % (50-75); TOTAL CELLS COUNTED 100
[2016-09-26] MEDS ORDERED: Ferric Sodium Gluconat Complex 62.5 mg/5 ml Vial IVPB SCH (10:00)
[2016-09-26] MEDS: Tolvaptan 15 MG TAB PO SCH (10:26)
--- NOTE | 2016-09-26 11:06 | CP.PCM.PN ---
Subjective - Date & Time of Evaluation Date of Evaluation: 09/26/16 Time of Evaluation: 10:30 - Subjective Subjective: No sob today Feels much better. States that he slept well Objective - Vital Signs/Intake and Output Vital Signs (last 24 hours): Temp Pulse Resp BP Pulse Ox 98.5 F 68 20 146/62 96 09/26/16 07:15 09/26/16 08:00 09/26/16 07:15 09/26/16 07:15 09/26/16 07:15 Intake and Output: 09/26/16 09/26/16 06:59 18:59 Intake Total 320 Balance 320 - Medications Medications: Current Medications Acetaminophen (Tylenol 325mg Tab) 650 mg PO Q6 PRN PRN Reason: Fever >100.4 F Amlodipine Besylate (Norvasc) 5 mg PO DAILY [facility] Last Admin: 09/25/16 10:27 Dose: 5 mg Aspirin (Aspirin Chewable) 81 mg PO DAILY [facility] Last Admin: 09/25/16 10:15 Dose: Not Given Carvedilol (Coreg) 25 mg PO BID [facility] Last Admin: 09/26/16 10:45 Dose: Not Given Clonidine HCl (Catapres) 0.3 mg PO TID [facility] Last Admin: 09/26/16 10:44 Dose: Not Given Clopidogrel Bisulfate (Plavix) 75 mg PO DAILY [facility] Last Admin: 09/25/16 18:49 Dose: 75 mg Docusate Sodium (Colace) 100 mg PO BID [facility] Last Admin: 09/26/16 10:26 Dose: 100 mg Enoxaparin Sodium (Lovenox) 40 mg SC DAILY [facility] Ferric Sodium Gluconate Complex (Ferrlecit) 125 mg IVPB TTS [facility] Stop: 10/04/16 10:01 Folic Acid (Folic Acid) 1 mg PO DAILY [facility] Last Admin: 09/26/16 10:26 Dose: 1 mg Glimepiride (Amaryl) 4 mg PO DAILY [facility] Last Admin: 09/26/16 10:26 Dose: 4 mg Heparin Sodium (Porcine) (Heparin) 3,700 units IVP TTS [facility] Stop: 10/08/16 10:01 Insulin Human Regular (Novolin R) 0 unit SC [facility] PRN Reason: Protocol Last Admin: 09/26/16 08:16 Dose: Not Given Isosorbide Mononitrate (Imdur) 120 mg PO DAILY [facility] Last Admin: 09/25/16 10:27 Dose: 120 mg Lactulose (Enulose) 10 gm PO DAILY [facility] Last Admin: 09/26/16 10:37 Dose: Not Given Ondansetron HCl (Zofran Inj) 4 mg IVP Q6 PRN PRN Reason: Nausea/Vomiting Last Admin: 09/25/16 07:36 Dose: 4 mg Oxycodone/Acetaminophen (Percocet 5/325 Mg Tab) 1 tab PO Q4 PRN PRN Reason: Pain, moderate (4-7) Stop: 09/27/16 19:42 Last Admin: 09/25/16 05:56 Dose: 1 tab Rosuvastatin Calcium (Crestor) 10 mg PO HS [facility] Last Admin: 09/25/16 21:14 Dose: 10 mg Sevelamer Carbonate (Renvela) 800 mg PO BID [facility] Last Admin: 09/25/16 18:38 Dose: 800 mg Sitagliptin Phosphate (Januvia) 100 mg PO DAILY [facility] Last Admin: 09/26/16 10:25 Dose: 100 mg Sucralfate (Carafate Tab) 1 gm PO BID [facility] Last Admin: 09/26/16 10:26 Dose: 1 gm - Labs Labs: 09/26/16 06:05 09/26/16 06:05 PT 14.9 SECONDS (9.7-12.2) H 09/25/16 07:11 INR 1.3 09/25/16 07:11 APTT 32 SECONDS (21-34) 09/25/16 07:11 - Respiratory Exam Additional comments: Lungs b/l expiratory wheezes - Cardiovascular Exam Cardiovascular Exam: REGULAR RHYTHM - GI/Abdominal Exam GI & Abdominal Exam: Firm - Extremities Exam Additional comments: 2+ b/l pedal edema Assessment and Plan - Assessment and Plan (Free Text) Assessment: ESRD on hemodilysis. Tolerated first treatment well yesterday Hyponatremia improving Fluid overload also improving Anemia CAD,DM Plan: For second dialysis today then maintain TTS schedule Add ferrlecit Monitor serum Sodium. No need for Tolvaptan. Hyponatremia will correct with HD
--- NOTE | 2016-09-26 11:49 | RAD ---
PROCEDURE: Intraoperative Fluoroscopy. HISTORY: RENAL FAILURE FINDINGS: Fluoroscopic assistance was provided for right central venous catheter placement. Please refer to the operative report from
--- NOTE | 2016-09-26 13:58 | CP.PCM.PN ---
Subjective - Date & Time of Evaluation Date of Evaluation: 09/26/16 Time of Evaluation: 14:00 - Subjective Subjective: feels better, NA 123, afte HD, for outpt HD Objective - Vital Signs/Intake and Output Vital Signs (last 24 hours): Temp Pulse Resp BP Pulse Ox 98.5 F 68 20 146/62 96 09/26/16 07:15 09/26/16 08:00 09/26/16 07:15 09/26/16 07:15 09/26/16 07:15 Intake and Output: 09/26/16 09/26/16 06:59 18:59 Intake Total 320 Balance 320 - Medications Medications: Current Medications Acetaminophen (Tylenol 325mg Tab) 650 mg PO Q6 PRN PRN Reason: Fever >100.4 F Amlodipine Besylate (Norvasc) 5 mg PO DAILY [facility] Last Admin: 09/25/16 10:27 Dose: 5 mg Aspirin (Aspirin Chewable) 81 mg PO DAILY [facility] Last Admin: 09/26/16 13:24 Dose: 81 mg Carvedilol (Coreg) 25 mg PO BID [facility] Last Admin: 09/26/16 10:45 Dose: Not Given Clonidine HCl (Catapres) 0.3 mg PO TID [facility] Last Admin: 09/26/16 10:44 Dose: Not Given Clopidogrel Bisulfate (Plavix) 75 mg PO DAILY [facility] Last Admin: 09/26/16 13:24 Dose: 75 mg Docusate Sodium (Colace) 100 mg PO BID [facility] Last Admin: 09/26/16 10:26 Dose: 100 mg Enoxaparin Sodium (Lovenox) 40 mg SC DAILY [facility] Ferric Sodium Gluconate Complex (Ferrlecit) 125 mg IVPB TTS [facility] Stop: 10/04/16 10:01 Folic Acid (Folic Acid) 1 mg PO DAILY [facility] Last Admin: 09/26/16 10:26 Dose: 1 mg Glimepiride (Amaryl) 4 mg PO DAILY [facility] Last Admin: 09/26/16 10:26 Dose: 4 mg Heparin Sodium (Porcine) (Heparin) 3,700 units IVP TTS [facility] Stop: 10/08/16 10:01 Insulin Human Regular (Novolin R) 0 unit SC ACHS [facility] PRN Reason: Protocol Last Admin: 09/26/16 12:37 Dose: 3 unit Isosorbide Mononitrate (Imdur) 120 mg PO DAILY [facility] Last Admin: 09/25/16 10:27 Dose: 120 mg Lactulose (Enulose) 10 gm PO DAILY [facility] Last Admin: 09/26/16 10:37 Dose: Not Given Ondansetron HCl (Zofran Inj) 4 mg IVP Q6 PRN PRN Reason: Nausea/Vomiting Last Admin: 09/25/16 07:36 Dose: 4 mg Oxycodone/Acetaminophen (Percocet 5/325 Mg Tab) 1 tab PO Q4 PRN PRN Reason: Pain, moderate (4-7) Stop: 09/27/16 19:42 Last Admin: 09/25/16 05:56 Dose: 1 tab Rosuvastatin Calcium (Crestor) 10 mg PO HS [facility] Last Admin: 09/25/16 21:14 Dose: 10 mg Sevelamer Carbonate (Renvela) 800 mg PO BID [facility] Last Admin: 09/26/16 12:36 Dose: 800 mg Sitagliptin Phosphate (Januvia) 100 mg PO DAILY [facility] Last Admin: 09/26/16 10:25 Dose: 100 mg Sucralfate (Carafate Tab) 1 gm PO BID [facility] Last Admin: 09/26/16 10:26 Dose: 1 gm - Labs Labs: 09/26/16 06:05 09/26/16 06:05 PT 14.9 SECONDS (9.7-12.2) H 09/25/16 07:11 INR 1.3 09/25/16 07:11 APTT 32 SECONDS (21-34) 09/25/16 07:11 - Constitutional Appears: Non-toxic - Head Exam Head Exam: ATRAUMATIC - Eye Exam Eye Exam: EOMI - ENT Exam ENT Exam: Mucous Membranes Moist - Neck Exam Neck Exam: absent: Lymphadenopathy, Thyromegaly - Respiratory Exam Respiratory Exam: Clear to Ausculation Bilateral. absent: Rales - Cardiovascular Exam Cardiovascular Exam: REGULAR RHYTHM, Murmur - GI/Abdominal Exam GI & Abdominal Exam: Normal Bowel Sounds. absent: Organomegaly - Rectal Exam Rectal Exam: Deferred - Extremities Exam Extremities Exam: Normal Capillary Refill. absent: Calf Tenderness - Neurological Exam Neurological Exam: Alert, Oriented x3 - Psychiatric Exam Psychiatric exam: Normal Mood - Skin Skin Exam: Dry Assessment and Plan (1) Hyponatremia Status: Acute (2) CKD (chronic kidney disease) stage 5, GFR less than 15 ml/min Status: Chronic (3) Diabetes 1.5, managed as type 2 Status: Chronic (4) Hypertension Status: Chronic (5) S/P CABG (coronary artery bypass graft) Status: Chronic
[2016-09-27] MEDS: (Novolin R) Insulin Human Regular 100 units/ml vial SC SCH ×3 (08:49→18:28)
--- NOTE | 2016-09-27 10:49 | CP.PCM.PN ---
Subjective - Date & Time of Evaluation Date of Evaluation: 09/27/16 Time of Evaluation: 10:47 - Subjective Subjective: Surgery: Dr. Prieto Patient up and moving around today. Patient tolerating HD through permacath w/o issues. Per nursing no acute events. Patient does have episodes of confusion but is easily reoriented. Objective - Vital Signs/Intake and Output Vital Signs (last 24 hours): Temp Pulse Resp BP Pulse Ox 98.3 F 92 H 20 201/75 H 96 09/27/16 08:16 09/27/16 08:54 09/27/16 08:16 09/27/16 08:54 09/27/16 08:16 Intake and Output: 09/27/16 09/27/16 06:59 18:59 Intake Total 120 Balance 120 - Medications Medications: Current Medications Acetaminophen (Tylenol 325mg Tab) 650 mg PO Q6 PRN PRN Reason: Fever >100.4 F Amlodipine Besylate (Norvasc) 5 mg PO DAILY [facility] Last Admin: 09/27/16 09:36 Dose: Not Given Aspirin (Aspirin Chewable) 81 mg PO DAILY [facility] Last Admin: 09/27/16 09:14 Dose: 81 mg Carvedilol (Coreg) 25 mg PO BID [facility] Last Admin: 09/27/16 09:05 Dose: Not Given Clonidine HCl (Catapres) 0.3 mg PO TID [facility] Last Admin: 09/27/16 09:15 Dose: Not Given Clopidogrel Bisulfate (Plavix) 75 mg PO DAILY [facility] Last Admin: 09/27/16 09:14 Dose: 75 mg Docusate Sodium (Colace) 100 mg PO BID [facility] Last Admin: 09/27/16 09:14 Dose: 100 mg Enoxaparin Sodium (Lovenox) 40 mg SC DAILY [facility] Ferric Sodium Gluconate Complex (Ferrlecit) 125 mg IVPB TTS [facility] Stop: 10/04/16 10:01 Last Admin: 09/26/16 15:19 Dose: 125 mg Folic Acid (Folic Acid) 1 mg PO DAILY [facility] Last Admin: 09/27/16 09:14 Dose: 1 mg Glimepiride (Amaryl) 4 mg PO DAILY [facility] Last Admin: 09/27/16 09:14 Dose: 4 mg Heparin Sodium (Porcine) (Heparin) 3,700 units IVP TTS [facility] Stop: 10/08/16 10:01 Last Admin: 09/26/16 15:21 Dose: 3,700 units Insulin Human Regular (Novolin R) 0 unit SC ACHS [facility] PRN Reason: Protocol Last Admin: 09/27/16 08:49 Dose: 2 unit Isosorbide Mononitrate (Imdur) 120 mg PO DAILY [facility] Last Admin: 09/27/16 09:36 Dose: Not Given Lactulose (Enulose) 10 gm PO DAILY [facility] Last Admin: 09/26/16 10:37 Dose: Not Given Ondansetron HCl (Zofran Inj) 4 mg IVP Q6 PRN PRN Reason: Nausea/Vomiting Last Admin: 09/25/16 07:36 Dose: 4 mg Oxycodone/Acetaminophen (Percocet 5/325 Mg Tab) 1 tab PO Q4 PRN PRN Reason: Pain, moderate (4-7) Stop: 09/27/16 19:42 Last Admin: 09/25/16 05:56 Dose: 1 tab Rosuvastatin Calcium (Crestor) 10 mg PO HS [facility] Last Admin: 09/26/16 21:27 Dose: 10 mg Sevelamer Carbonate (Renvela) 800 mg PO BID [facility] Last Admin: 09/27/16 09:14 Dose: 800 mg Sitagliptin Phosphate (Januvia) 100 mg PO DAILY [facility] Last Admin: 09/27/16 09:13 Dose: 100 mg Sucralfate (Carafate Tab) 1 gm PO BID [facility] Last Admin: 09/27/16 09:13 Dose: 1 gm - Labs Labs: 09/26/16 06:05 09/26/16 06:05 PT 14.9 SECONDS (9.7-12.2) H 09/25/16 07:11 INR 1.3 09/25/16 07:11 APTT 32 SECONDS (21-34) 09/25/16 07:11 - Constitutional Appears: Non-toxic, No Acute Distress - Head Exam Head Exam: ATRAUMATIC, NORMOCEPHALIC - Eye Exam Eye Exam: EOMI, Normal appearance - ENT Exam ENT Exam: Mucous Membranes Moist - Neck Exam Additional comments: right IJ permacath, no hematoma - Respiratory Exam Respiratory Exam: NORMAL BREATHING PATTERN. absent: Respiratory Distress Assessment and Plan - Assessment and Plan (Free Text) Assessment: 76 y/o male s/p right IJ permacath insertion, plan for peritoneal dialysis catheter insertion Plan: -OR friday -pre-op Friday -daily labs -cont HD -medical management per primary -further recs per Dr. Ida Brown PGY1
--- NOTE | 2016-09-27 11:09 | CP.PCM.PN ---
Subjective - Date & Time of Evaluation Date of Evaluation: 09/27/16 Time of Evaluation: 10:00 - Subjective Subjective: Mildly dyspneic BP was high pn am 211/95 & HR was 44/mon Pt had denied dizziness, CARRILLO Was given BP meds except for Coreg Objective - Vital Signs/Intake and Output Vital Signs (last 24 hours): Temp Pulse Resp BP Pulse Ox 98.3 F 92 H 20 201/75 H 96 09/27/16 08:16 09/27/16 08:54 09/27/16 08:16 09/27/16 08:54 09/27/16 08:16 Intake and Output: 09/27/16 09/27/16 06:59 18:59 Intake Total 120 Balance 120 - Medications Medications: Current Medications Acetaminophen (Tylenol 325mg Tab) 650 mg PO Q6 PRN PRN Reason: Fever >100.4 F Amlodipine Besylate (Norvasc) 5 mg PO DAILY [facility] Last Admin: 09/27/16 09:36 Dose: Not Given Aspirin (Aspirin Chewable) 81 mg PO DAILY [facility] Last Admin: 09/27/16 09:14 Dose: 81 mg Carvedilol (Coreg) 25 mg PO BID [facility] Last Admin: 09/27/16 09:05 Dose: Not Given Clonidine HCl (Catapres) 0.3 mg PO TID [facility] Last Admin: 09/27/16 09:15 Dose: Not Given Clopidogrel Bisulfate (Plavix) 75 mg PO DAILY [facility] Last Admin: 09/27/16 09:14 Dose: 75 mg Docusate Sodium (Colace) 100 mg PO BID [facility] Last Admin: 09/27/16 09:14 Dose: 100 mg Enoxaparin Sodium (Lovenox) 40 mg SC DAILY [facility] Ferric Sodium Gluconate Complex (Ferrlecit) 125 mg IVPB TTS [facility] Stop: 10/04/16 10:01 Last Admin: 09/26/16 15:19 Dose: 125 mg Folic Acid (Folic Acid) 1 mg PO DAILY [facility] Last Admin: 09/27/16 09:14 Dose: 1 mg Glimepiride (Amaryl) 4 mg PO DAILY [facility] Last Admin: 09/27/16 09:14 Dose: 4 mg Heparin Sodium (Porcine) (Heparin) 3,700 units IVP TTS [facility] Stop: 10/08/16 10:01 Last Admin: 09/26/16 15:21 Dose: 3,700 units Insulin Human Regular (Novolin R) 0 unit SC ACHS [facility] PRN Reason: Protocol Last Admin: 09/27/16 08:49 Dose: 2 unit Isosorbide Mononitrate (Imdur) 120 mg PO DAILY [facility] Last Admin: 09/27/16 09:36 Dose: Not Given Lactulose (Enulose) 10 gm PO DAILY [facility] Last Admin: 09/26/16 10:37 Dose: Not Given Ondansetron HCl (Zofran Inj) 4 mg IVP Q6 PRN PRN Reason: Nausea/Vomiting Last Admin: 09/25/16 07:36 Dose: 4 mg Oxycodone/Acetaminophen (Percocet 5/325 Mg Tab) 1 tab PO Q4 PRN PRN Reason: Pain, moderate (4-7) Stop: 09/27/16 19:42 Last Admin: 09/25/16 05:56 Dose: 1 tab Rosuvastatin Calcium (Crestor) 10 mg PO HS [facility] Last Admin: 09/26/16 21:27 Dose: 10 mg Sevelamer Carbonate (Renvela) 800 mg PO BID [facility] Last Admin: 09/27/16 09:14 Dose: 800 mg Sitagliptin Phosphate (Januvia) 100 mg PO DAILY [facility] Last Admin: 09/27/16 09:13 Dose: 100 mg Sucralfate (Carafate Tab) 1 gm PO BID [facility] Last Admin: 09/27/16 09:13 Dose: 1 gm - Labs Labs: 09/26/16 06:05 09/26/16 06:05 PT 14.9 SECONDS (9.7-12.2) H 09/25/16 07:11 INR 1.3 09/25/16 07:11 APTT 32 SECONDS (21-34) 09/25/16 07:11 - Respiratory Exam Additional comments: Few B/L expiratory wheezes - Cardiovascular Exam Cardiovascular Exam: REGULAR RHYTHM - Extremities Exam Additional comments: 2+ pitting edema of both LEs - Neurological Exam Additional comments: A&O x 3 Speech is normal Moves all extrem equally B?L Assessment and Plan - Assessment and Plan (Free Text) Assessment: ESRD on maintenance HD Hyponatremia most likely dilutional; Improving Uncontrolled HTN Bradycardia. Coreg is held Currently HR is 76/mon Anemia Plan: For dialysis today & kep schedule of [facility] Monitor BP & sodium Stat labs ordered
[2016-09-27 11:42] LABS: HEMATOCRIT 26.1 % (35.0-51.0); MEAN CELL VOLUME 82.3 fL (80.0-94.0); MEAN CORPUSCULAR HEMOGLOBIN 26.3 pg (27.0-31.0); MEAN PLATELET VOLUME 6.6 fL (7.2-11.7); WHITE BLOOD COUNT 12.5 K/uL (4.8-10.8)
[2016-09-27 11:50] LABS: POTASSIUM 3.5 mmol/L (3.6-5.2)
[2016-09-27 11:54] LABS: CALCIUM 7.7 mg/dl (8.6-10.4)
[2016-09-27] MEDS ORDERED: Epoetin Alfa 10,000 unit/ml Dialysis IV ONE ×2 (12:15→14:45)
--- NOTE | 2016-09-27 12:35 | CP.PCM.PN ---
Subjective - Date & Time of Evaluation Date of Evaluation: 09/27/16 Time of Evaluation: 12:00 - Subjective Subjective: Doing well no acute distress, sodium 132, observe blood pressure and heart rate , for outpatient hemodialysis Objective - Vital Signs/Intake and Output Vital Signs (last 24 hours): Temp Pulse Resp BP Pulse Ox 97.7 F 87 18 175/89 H 98 09/27/16 11:25 09/27/16 11:25 09/27/16 11:25 09/27/16 11:35 09/27/16 11:25 Intake and Output: 09/27/16 09/27/16 06:59 18:59 Intake Total 120 Balance 120 - Medications Medications: Current Medications Acetaminophen (Tylenol 325mg Tab) 650 mg PO Q6 PRN PRN Reason: Fever >100.4 F Amlodipine Besylate (Norvasc) 5 mg PO DAILY [facility] Last Admin: 09/27/16 09:36 Dose: Not Given Aspirin (Aspirin Chewable) 81 mg PO DAILY [facility] Last Admin: 09/27/16 09:14 Dose: 81 mg Carvedilol (Coreg) 25 mg PO BID [facility] Last Admin: 09/27/16 09:05 Dose: Not Given Clonidine HCl (Catapres) 0.3 mg PO TID [facility] Last Admin: 09/27/16 09:15 Dose: Not Given Clopidogrel Bisulfate (Plavix) 75 mg PO DAILY [facility] Last Admin: 09/27/16 09:14 Dose: 75 mg Docusate Sodium (Colace) 100 mg PO BID [facility] Last Admin: 09/27/16 09:14 Dose: 100 mg Enoxaparin Sodium (Lovenox) 40 mg SC DAILY [facility] Ferric Sodium Gluconate Complex (Ferrlecit) 125 mg IVPB TTS [facility] Stop: 10/04/16 10:01 Last Admin: 09/26/16 15:19 Dose: 125 mg Folic Acid (Folic Acid) 1 mg PO DAILY [facility] Last Admin: 09/27/16 09:14 Dose: 1 mg Glimepiride (Amaryl) 4 mg PO DAILY [facility] Last Admin: 09/27/16 09:14 Dose: 4 mg Heparin Sodium (Porcine) (Heparin) 3,700 units IVP TTS [facility] Stop: 10/08/16 10:01 Last Admin: 09/26/16 15:21 Dose: 3,700 units Insulin Human Regular (Novolin R) 0 unit SC [facility] PRN Reason: Protocol Last Admin: 09/27/16 08:49 Dose: 2 unit Isosorbide Mononitrate (Imdur) 120 mg PO DAILY [facility] Last Admin: 09/27/16 09:36 Dose: Not Given Lactulose (Enulose) 10 gm PO DAILY [facility] Last Admin: 09/26/16 10:37 Dose: Not Given Ondansetron HCl (Zofran Inj) 4 mg IVP Q6 PRN PRN Reason: Nausea/Vomiting Last Admin: 09/25/16 07:36 Dose: 4 mg Oxycodone/Acetaminophen (Percocet 5/325 Mg Tab) 1 tab PO Q4 PRN PRN Reason: Pain, moderate (4-7) Stop: 09/27/16 19:42 Last Admin: 09/25/16 05:56 Dose: 1 tab Rosuvastatin Calcium (Crestor) 10 mg PO HS [facility] Last Admin: 09/26/16 21:27 Dose: 10 mg Sevelamer Carbonate (Renvela) 1,600 mg PO TIDCC [facility] Sitagliptin Phosphate (Januvia) 100 mg PO DAILY [facility] Last Admin: 09/27/16 09:13 Dose: 100 mg Sucralfate (Carafate Tab) 1 gm PO BID [facility] Last Admin: 09/27/16 09:13 Dose: 1 gm - Labs Labs: 09/27/16 11:34 09/27/16 11:34 PT 14.9 SECONDS (9.7-12.2) H 09/25/16 07:11 INR 1.3 09/25/16 07:11 APTT 32 SECONDS (21-34) 09/25/16 07:11 - Constitutional Appears: Non-toxic - Head Exam Head Exam: ATRAUMATIC - Eye Exam Eye Exam: EOMI - ENT Exam ENT Exam: Mucous Membranes Moist - Neck Exam Neck Exam: absent: Lymphadenopathy, Thyromegaly - Respiratory Exam Respiratory Exam: Clear to Ausculation Bilateral. absent: Rales - Cardiovascular Exam Cardiovascular Exam: REGULAR RHYTHM, Murmur - GI/Abdominal Exam GI & Abdominal Exam: Normal Bowel Sounds. absent: Organomegaly - Rectal Exam Rectal Exam: Deferred - Extremities Exam Extremities Exam: Normal Capillary Refill. absent: Calf Tenderness - Neurological Exam Neurological Exam: Alert, Oriented x3 - Psychiatric Exam Psychiatric exam: Normal Mood - Skin Skin Exam: Intact Assessment and Plan (1) Hyponatremia Status: Acute (2) CKD (chronic kidney disease) stage 5, GFR less than 15 ml/min Status: Chronic (3) Diabetes 1.5, managed as type 2 Status: Chronic (4) Hypertension Status: Chronic (5) S/P CABG (coronary artery bypass graft) Status: Chronic
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
[2016-09-27 15:17] VITALS: RESP 20
[2016-09-27 16:01] VITALS: PULSE 79
[2016-09-27 16:19] VITALS: BP 179/85; TEMP 98.1; O2SAT 95
--- NOTE | 2016-09-28 15:12 | CARD ---
APPROVED REPORT EKG Measurement Heart [id number] IN 206P39 [id number] <Conclusion> Sinus rhythm with premature atrial complexes with aberrant conduction Nonspecific T wave abnormality Abnormal ECG
--- NOTE | 2016-10-05 14:35 | CARD ---
APPROVED REPORT EKG Measurement Heart [id number] LA 204P5 [id number] <Conclusion> Sinus rhythm with premature atrial complexes Left ventricular hypertrophy with repolarization abnormality Abnormal ECG
== END 2016-09-27 18:30 | disposition home or self-care (01) | DRG 640 ==
LOC: C.ER 12:16 → C.9E 14:32 → C.6T 16:49
PROVIDERS: ADMIT Internal Medicine Cardiovascular Disease; ATTEND Internal Medicine Cardiovascular Disease
PROC: B5181ZA Fluoroscopy of Superior Vena Cava using Low Osmolar Contrast, Guidance (ICD-10-PCS; 2016-09-25)
PROC: B548ZZA Ultrasonography of Superior Vena Cava, Guidance (ICD-10-PCS; 2016-09-25)
PROC: 02HV33Z Insertion of Infusion Device into Superior Vena Cava, Percutaneous Approach (ICD-10-PCS; principal; 2016-09-25 13:30)
PROC: 5A1D00Z (ICD-10-PCS; 2016-09-26)
DX: E87.1 Hypo-osmolality and hyponatremia (principal); N18.6 End stage renal disease; I13.2 Hypertensive heart and chronic kidney disease with heart failure and with stage 5 chronic kidney disease, or end stage renal disease; E11.21 Type 2 diabetes mellitus with diabetic nephropathy; N04.9 Nephrotic syndrome with unspecified morphologic changes; I50.9 Heart failure, unspecified; I25.10 Atherosclerotic heart disease of native coronary artery without angina pectoris; E78.00 Pure hypercholesterolemia, unspecified; K59.00 Constipation, unspecified; E11.22 Type 2 diabetes mellitus with diabetic chronic kidney disease; D64.9 Anemia, unspecified; N40.0 Benign prostatic hyperplasia without lower urinary tract symptoms; Z95.1 Presence of aortocoronary bypass graft; I25.2 Old myocardial infarction; Z95.5 Presence of coronary angioplasty implant and graft; Z99.2 Dependence on renal dialysis; Z79.4 Long term (current) use of insulin

== ENCOUNTER 2016-10-31 10:15 | Day surgery (SDC) | payer MEDICARE ==
[2016-10-29 09:35] VITALS: BMI 30.8
[2016-10-31] MEDS ORDERED: HEPARIN-NS 5,000 UNITS/500 ML 0 UNIT/0 ML BAG IV ONE (10:29)
[2016-10-31] MEDS ORDERED: ceFAZolin IV 1 gm in Dextrose 0 GM/0 ML BAG IVPB ONE (10:29)
[2016-10-31] MEDS ORDERED: HEPARIN-NS 5,000 UNITS/500 ML 5,000 UNIT/500 ML BAG IV ONE (10:41)
[2016-10-31] MEDS ORDERED: Iodixanol 320 MG/ML 200 ML BOTTLE IV ONE (10:41)
[2016-10-31] MEDS ORDERED: Sodium Chloride 0.9% 500 ML IV ONE (11:00)
[2016-10-31] MEDS ORDERED: ceFAZolin IV 2 gm in Dextrose 1 GM/50 ML BAG IVPB ONE (11:07)
[2016-10-31] MEDS ORDERED: Midazolam 2 MG/2 ML VIAL ONE (11:08)
[2016-10-31] MEDS ORDERED: Propofol 10 mg/ml Inj (20 ML) ONE (11:08)
[2016-10-31] MEDS ORDERED: ePHEDrine 50 mg/ml Inj ONE (11:43)
[2016-10-31] MEDS ORDERED: HYDROmorphone 0.5 mg/0.5 ml ISec ONE (14:13)
--- NOTE | 2016-10-31 15:05 | OP ---
PROCEDURE DATE: 10/31/2016 PREOPERATIVE DIAGNOSIS: Renal failure. POSTOPERATIVE DIAGNOSIS: Renal failure. PROCEDURE CARRIED OUT: Brachiobasilic fistula, left elbow. SURGEON: Chase Prieto Jr., MD WEB DESIGN INTERN: Dr. Tripp. ANESTHESIOLOGIST: INDICATIONS: The patient is an elderly man started on dialysis by means of a jugular vein catheter, now requires permanent access. OPERATIVE FINDINGS: preoperative vein mapping did not demonstrate any cephalic vein of note th at could be used for dialysis. The basilic vein was also listed on that study as small; however, steven or to the operation, in the operating room, we traced out the basilic vein which was better size and caliber. Because of this, we carried out a brachiobasilic fistula. This likely will require mobilization to a more superficial level in the future. PROCEDURE: The patient was given general anesthesia, intravenous antibiotics. The arm was prepped a nd draped. An incision was made on the marked areas dissecting out the brachial artery and the adjac ent basilic vein to 2 separate incisions. This was then tunneled subcutaneously and anastomosed in a n end-to-side fashion to the adjacent brachial artery using loupe magnification and heparin anticoagu lation. After this had been done and the anastomosis complete, hemostasis was obtained. We closed t he wounds with Monocryl and Vicryl sutures and fine nylon sutures on the skin. OPERATION CARRIED OUT: Brachiobasilic fistula, left elbow. Again, it should be noted, most likely this will require mobilization in the future. Chase Prieto Jr., MD cc:John Chance MD 56 TT: 10/31/2016 13:08:24 claribel
[2016-10-31] MEDS ORDERED: Oxycodone/Acetaminophen 5/325 mg Tab PO PRN (20:09)
[2016-10-31 21:54] LABS: CALCIUM 7.8 mg/dl (8.6-10.4); POTASSIUM 4.1 mmol/L (3.6-5.2)
== END 2016-10-31 16:00 | disposition home or self-care (01) ==
LOC: C.SDS 10:15
PROVIDERS: ATTEND Surgery Vascular Surgery
DX: N18.6 End stage renal disease (principal)
CPT/HCPCS: 36415; 36821; 80048; J2250; J2704; J3010

== ENCOUNTER 2016-12-19 07:00 | Day surgery (SDC) | payer MEDICARE ==
[2016-12-12 08:11] VITALS: BMI 26.8
[2016-12-19] MEDS ORDERED: HEPARIN-NS 5,000 UNITS/500 ML 5,000 UNIT/500 ML BAG IV ONE (07:24)
[2016-12-19] MEDS ORDERED: ceFAZolin IV 1 gm in Dextrose 0 GM/0 ML BAG IVPB ONE (07:24)
[2016-12-19 09:00] LABS: POTASSIUM 4.6 mmol/L (3.6-5.2)
[2016-12-19 09:03] LABS: CALCIUM 8.3 mg/dl (8.6-10.4)
[2016-12-19] MEDS ORDERED: Etomidate 20 mg/10ml Inj IV ONE (09:28)
[2016-12-19] MEDS ORDERED: Midazolam 2 MG/2 ML VIAL ONE (09:29)
[2016-12-19] MEDS ORDERED: Sodium Chloride 0.9% 500 ML IV ONE (09:30)
[2016-12-19] MEDS ORDERED: ceFAZolin IV 2 gm in Dextrose 1 GM/50 ML BAG IVPB ONE (09:47)
[2016-12-19] MEDS ORDERED: ePHEDrine 50 mg/ml Inj ONE (10:01)
--- NOTE | 2016-12-19 11:47 | PCM.SURG1 ---
Surgeon's Initial Post Op Note - Surgeon's Notes Surgeon: Dr. Prieto Steel Estimator: Dr. Elliott PGY3, Student Doctor Misdary Type of Anesthesia: General LMA Pre-Operative Diagnosis: ESRD, Left arm Brachiobasilic AVF Operative Findings: see op report Post-Operative Diagnosis: same Operation Performed: revision and elevation of left arm AVF Specimen/Specimens Removed: none Estimated Blood Loss: EBL {In ML}: 25 Blood Products Given: N/A Drains Used: No Drains Post-Op Condition: Good Date of Surgery/Procedure: 12/19/16 Time of Surgery/Procedure: 11:47
[2016-12-19] MEDS: HYDROmorphone 0.5 mg/0.5 ml ISec IVP PRN ×2 (12:11→12:31)
[2016-12-19 13:09] VITALS: RESP 15; O2SAT 97
[2016-12-19 14:01] VITALS: BP 171/71; PULSE 71; TEMP 98.1
== END 2016-12-19 13:32 | disposition home or self-care (01) ==
LOC: C.SDS 07:00
PROVIDERS: ATTEND Surgery Vascular Surgery
DX: N18.6 End stage renal disease (principal)
CPT/HCPCS: 36415; 36819; 80048; 82948; J0690; J1170; J2250; J2405; J3010; J7040

== ENCOUNTER 2017-07-23 10:42 | Emergency (ER) | payer MEDICARE ==
[2017-07-23 10:43] VITALS: BMI 27.1
[2017-07-23 10:57] VITALS: BP 224/88; PULSE 64; RESP 16; TEMP 98.4; O2SAT 98
--- NOTE | 2017-07-23 12:28 | C.PDOC ---
History Of Present Illness 76 y/o M c PMHx ESRD on HD p/w bleeding AV fistula today. Patient received dialysis as normal, fistula persistently bled afterwards and patient was encouraged strongly to come to ED for further treatment. Bleeding stopped prior to ED arrival. Patient feels well, has no symptoms. Denies lightheadedness, chest pain, dyspnea, palpitaitons. Has appointment with Vascular Dr. Prieto tomorrow. Time Seen by Provider: 07/23/17 11:57 Chief Complaint (Nursing): Medical Clearance Past Medical History Vital Signs: Last Vital Signs Temp 98.4 F 07/23/17 10:51 Pulse 64 07/23/17 10:51 Resp 16 07/23/17 10:51 BP 224/88 H 07/23/17 10:51 Pulse Ox 98 07/23/17 12:28 - Medical History PMH: Anemia, Gastritis (FROM MEDS), HTN, Hypercholesterolemia, Peripheral Edema (No longer), End Stage Renal Disease, Chronic Kidney Disease Surgical History: Coronary Stent (2005), Endoscopy - [facility] Procedures FLUOROSCOPY OF SUP VENA CAVA USING L OSM CONTRAST, GUIDANCE (09/24/16) INSERTION OF INFUSION DEV INTO SUP VENA CAVA, PERC APPROACH (09/24/16) PERFORMANCE OF URINARY FILTRATION, SINGLE (09/24/16) ULTRASONOGRAPHY OF SUPERIOR VENA CAVA, GUIDANCE (09/24/16) Family History: States: Unknown Family Hx - Social History Hx Tobacco Use: No Hx Alcohol Use: No Hx Substance Use: No Review Of Systems Except As Marked, All Systems Reviewed And Found Negative. Constitutional: Negative for: Fever Cardiovascular: Negative for: Chest Pain Physical Exam - Physical Exam Additional Physical Exam Comments: Gen: NAD Head: NC Eyes: No pallor ENT: MMM CV: Regular rate Resp: No accessory muscle use Extre: L arm fistula, no active bleeding. Neuro: Alert ED Course And Treatment O2 Sat by Pulse Oximetry: 98 Medical Decision Making Medical Decision Making: Educated on hemostasis should bleeding recur. Instructed to return to ED for any anemia symptoms or persistent bleeding. Disposition - Disposition Disposition: HOME/ ROUTINE Disposition Time: 12:26 Condition: STABLE Forms: Stubmatic (Bulgarian) - Clinical Impression Clinical Impression: Hemorrhage of arteriovenous fistula
== END 2017-07-23 12:58 | disposition home or self-care (01) ==
LOC: C.ER 10:42
DX: T82.838A Hemorrhage due to vascular prosthetic devices, implants and grafts, initial encounter (principal); Y84.1 Kidney dialysis as the cause of abnormal reaction of the patient, or of later complication, without mention of misadventure at the time of the procedure; Y92.89 Other specified places as the place of occurrence of the external cause

== ENCOUNTER 2017-07-24 05:59 | Day surgery (SDC) | payer MEDICARE ==
[2017-07-22 11:44] VITALS: BMI 27.1
[2017-07-24] MEDS ORDERED: Iodixanol 320 MG/ML 100 ML BOTTLE IV ONE (07:52)
[2017-07-24] MEDS ORDERED: Lidocaine 2% Inj (20ml) ONE (07:52)
[2017-07-24] MEDS ORDERED: Phenylephrine 10 mg/ml Inj ONE (08:14)
[2017-07-24] MEDS ORDERED: ePHEDrine 50 mg/ml Inj ONE (08:14)
[2017-07-24] MEDS ORDERED: Midazolam 2 MG/2 ML VIAL ONE (08:15)
[2017-07-24] MEDS ORDERED: Metoprolol 1 mg/ml Inj IVP ONE (09:16)
--- NOTE | 2017-07-24 09:44 | PCM.SURG1 ---
Surgeon's Initial Post Op Note - Surgeon's Notes Surgeon: jorje String Laster: 0 Type of Anesthesia: IV Sedation Anesthesia Administered By: luan wiggins Pre-Operative Diagnosis: fistula stenosis Operative Findings: 70% stenosis at cepahlad portion of basilic vein fistula. 70% stenosis at subclavian junction. 70% stenosis adjacent to cephalic arch Post-Operative Diagnosis: same Operation Performed: fistulogram. ballon angioplasty of innominate vein , fistula , and subclavian vein on left Specimen/Specimens Removed: 0 Estimated Blood Loss: EBL {In ML}: 300 Blood Products Given: N/A Drains Used: No Drains Post-Op Condition: Good Date of Surgery/Procedure: 07/24/17 Time of Surgery/Procedure: 09:45
--- NOTE | 2017-07-24 21:22 | OP ---
PROCEDURE DATE: 07/24/2017 PREOPERATIVE DIAGNOSES: Excessive bleeding post dialysis, vein graft stenosis. PROCEDURE CARRIED OUT: Fistulogram of left arm and balloon angioplasty of fistula, cephalic vein arch, subclavian vein and the innominate vein. SURGEON: Chase Prieto MD RESIDENTIAL MORTGAGE MANAGER: None. ANESTHESIOLOGIST: DEL. INDICATIONS: A 76-year-old man on dialysis, has had persistent bleeding at the end of the dialysis through the basilic vein fistula. Subsequently, he had noninvasive test done which confirmed the presence of a stenosis at the upper arm adjacent to the shoulder, but still an immobilized basilic vein. OPERATIVE FINDINGS: 1. There was approximately 70% stenosis with this location. As advertised, there was also 70% stenosis at the confluence of the innominate vein and also another area adjacent to in the subclavian vein. All these were dilated progressively but eventually over the 10 mm balloon. The final cosmetic results were satisfactory. At the innominate vein, there was a waste that was noted and at the basilic vein where actually has fistula, there was a pronounced waste on the balloon. However, the final pictures did not show much improvement cosmetically from previously. Two sutures were placed, Butler-Sergey sutures at the puncture site and bleeding was controlled. There was a little blood loss of approximately 300 mL during the procedure. Additional pictures were taken of the arterial anastomosis which was widely patent. DESCRIPTION OF PROCEDURE: The patient was given local anesthesia and using ultrasound guidance, a puncture was made. Under fluoroscopic control, the guidewire was advanced centrally, multiple films were then taken which was reported above. Subsequently, the sheath dilator first initially with a 6, then an 8 and 10 mm balloon both at the fistula portion centrally with significant waste. However, the final completion films did not show much improvement. Finally, after we removed the catheter we applied 7-0 Butler-Sergey suture to close the puncture site. Blood loss for procedure was 300 mL. The operation carried out was fistulogram of left arm and then balloon angioplasty of the innominate vein, subclavian vein, and the fistula itself, all of which exhibited approximately 70% stenosis. Chase Prieto Jr., MD
== END 2017-07-24 12:29 | disposition home or self-care (01) ==
LOC: C.SDS 05:59
PROVIDERS: ATTEND Surgery Vascular Surgery
DX: T82.858A Stenosis of other vascular prosthetic devices, implants and grafts, initial encounter (principal); Y71.1 Therapeutic (nonsurgical) and rehabilitative cardiovascular devices associated with adverse incidents; Y92.9 Unspecified place or not applicable; Z99.2 Dependence on renal dialysis
CPT/HCPCS: 36901; 36907; J1644; J2250; J2370; J3010; Q9967

== ENCOUNTER 2018-02-12 06:27 | Day surgery (SDC) | payer MEDICARE ==
[2018-02-12 07:28] LABS: CALCIUM 8.1 mg/dl (8.6-10.4)
[2018-02-12] MEDS ORDERED: Lidocaine 2% MPF (5 ml) Inj ONE (07:49)
[2018-02-12] MEDS ORDERED: Iodixanol 320 MG/ML 100 ML BOTTLE IV ONE (07:53)
[2018-02-12 08:10] LABS: INR 1.2
[2018-02-12] MEDS ORDERED: Midazolam 2 MG/2 ML VIAL ONE (08:23)
[2018-02-12 08:34] LABS: HEMOGLOBIN 11.6 g/dL (12.0-18.0); MEAN CELL VOLUME 88.6 fL (80.0-94.0); MEAN CORPUSCULAR HEMOGLOBIN 30.4 pg (27.0-31.0); MEAN CORPUSCULAR HGB CONC 34.2 g/dL (33.0-37.0); MEAN PLATELET VOLUME 7.8 fL (7.2-11.7); RBC 3.83 Mil/uL (4.40-5.90); RED CELL DISTRIBUTION WIDTH 16.2 % (11.5-14.5); WHITE BLOOD COUNT 6.4 K/uL (4.8-10.8)
--- NOTE | 2018-02-13 08:16 | VAS ---
Copied To: Chase Prieto Jr., MD Attending MD: Chase Prieto Jr., MD DATE: 02/12/2018 PREOPERATIVE DIAGNOSES: Malfunctioning fistula, left arm. Excessive bleeding after procedure. PROCEDURE CARRIED OUT: 1. Fistulogram, left arm. 2. Balloon angioplasty of subclavian vein centrally using an 8 mm balloon and also inside the fistula all with an 8 mm balloon. The other areas of the fistula were also dilated with a shorter 7 mm balloon. FINDINGS: The central vein underneath the clavicle had a 90% stenosis. The axillary vein had approximately 50% stenosis, and there was approximately 70% stenosis at the cephalad portion of the basilic vein. Final completion showed marked resolution but not a complete resolution of the problem. The fistula itself was relatively difficult to dilate, and we were able to dilate this successfully 7 mm, but we could not break it beyond this. The central vein on the subclavian which was the most significant one was able to be dilated successfully to approximately 80% of its movement, and the axillary vein area was dilated successfully with the cosmetic results were not as good. After the completion of the procedure, pressure was applied to the site until bleeding was controlled. DESCRIPTION OF PROCEDURE: The patient was given local anesthesia using ultrasound guidance. The fistula was cannulated with micropuncture technique. Images were then taken demonstrating the central veins all the way up to the arterial anastomosis which were satisfactory. After completion of the this, we then carried out the therapeutic part of the procedure, which was mentioned as above. 1. We did the fistulogram in the left arm. 2. We did balloon angioplasty of central vein stenosis and we did two peripheral venoplasties inside the fistula and in the axillary vein. Chase Prieto Jr., MD cc: Jos Hoffman MD
[2018-02-13 16:04] VITALS: RESP 18; O2SAT 100
== END 2018-02-12 12:05 | disposition home or self-care (01) ==
LOC: C.SPRAD 06:27
PROVIDERS: ATTEND Surgery Vascular Surgery
DX: T82.858A Stenosis of other vascular prosthetic devices, implants and grafts, initial encounter (principal); I12.0 Hypertensive chronic kidney disease with stage 5 chronic kidney disease or end stage renal disease; Y82.8 Other medical devices associated with adverse incidents; N18.6 End stage renal disease
CPT/HCPCS: 36415; 36902; 36907; 76937; 80048; 82948; 85027; 85610; 85730; 94770; C1725; C1766; C1769; J1644; J2250; J3010; Q9967